=== PATIENT | male | born 1995 | race Caucasian/White ===

== ENCOUNTER 2016-06-23 19:22 | Emergency (ER) | payer OTHER ==
[2016-06-23 19:57] VITALS: BP 126/69
--- NOTE | 2016-06-23 20:18 | UC ---
Throat Pain/Nasal Bob HPI - HPI Summary HPI Summary: ST, L>R since yesterday. Roommate has strep currently, but has hx of repeated gonorrhea in the throat. Thinks it is one of these. Denies rash, vomiting, or cough. - History of Current Complaint Chief Complaint: UCRespiratory Stated Complaint: THROAT PAIN Time Seen by Provider: 06/23/16 20:10 Hx Obtained From: Patient Onset/Duration: Gradual Onset Cough: None Associated Signs & Symptoms: Negative: Fever, Vomiting, Rash - Allergies/Home Medications Allergies/Adverse Reactions: Allergies Allergy/AdvReac Type Severity Reaction Status Date / Time No Known Allergies Allergy Verified 05/24/14 14:00 Home Medications: Home Medications Aleve 1 tab PO DAILY PRN 06/23/16 [History Confirmed 06/23/16] PMH/Surg Hx/FS Hx/Imm Hx Endocrine History Of: Denies: Diabetes, Thyroid Disease Cardiovascular History Of: Denies: Cardiac Disorders, Hypertension Respiratory History Of: Denies: COPD, Asthma GI/ History Of: Denies: Ulcer - Surgical History Surgical History: None - Family History Known Family History: Positive: Hypertension - Social History Alcohol Use: Rare Substance Use Type: None Smoking Status (MU): Never Smoked Tobacco Have You Smoked in the Last Year: No Household Exposure Type: Cigarettes Review of Systems Constitutional: Negative Skin: Negative Eyes: Negative ENT: Sore Throat Respiratory: Negative Cardiovascular: Negative Gastrointestinal: Negative Genitourinary: Negative Motor: Negative Neurovascular: Negative Musculoskeletal: Negative Neurological: Negative Psychological: Negative All Other Systems Reviewed And Are Negative: Yes Physical Exam Triage Information Reviewed: Yes Appearance: Well-Appearing, No Pain Distress, Well-Nourished Vital Signs: Initial Vital Signs Temp 99.5 F 06/23/16 19:50 Pulse 84 06/23/16 19:50 Resp 18 06/23/16 19:50 BP 126/69 06/23/16 19:50 Pulse Ox 98 06/23/16 19:50 Vital Signs Reviewed: Yes Eye Exam: Normal Eyes: Positive: Conjunctiva Clear ENT: Positive: Hearing grossly normal, Pharyngeal erythema, TMs normal, Tonsillar swelling Dental Exam: Normal Neck: Positive: Tenderness @ - tonsillar nodes, Enlarged Nodes @ - tonsillar Respiratory Exam: Normal Respiratory: Positive: Chest non-tender, Lungs clear, Normal breath sounds, No respiratory distress, No accessory muscle use Cardiovascular Exam: Normal Cardiovascular: Positive: RRR, No Murmur Musculoskeletal Exam: Normal Neurological Exam: Normal Neurological: Positive: Alert Psychological Exam: Normal Skin Exam: Normal Throat Pain/Nasal Course/Dx - Differential Dx/Diagnosis Provider Diagnoses: pharyngitis, suspect gonorrhea Discharge - Discharge Plan Condition: Stable Disposition: HOME Patient Education Materials: Tonsillitis (ED) Referrals: [facility] [Outside] Additional Instructions: your rapid strep is negative; I am treating you and testing you for gonorrhea. If you do not have clear and rapid improvement, please follow up with Yuri.
[2016-06-23] MEDS ORDERED: Lidocaine 1% MPF* 2 ML VIAL INJ ONE (20:36)
[2016-06-23] MEDS ORDERED: cefTRIAXone VIAL(*) 250 MG VIAL IM ONE (20:36)
== END 2016-06-23 20:55 | disposition home or self-care (01) ==
LOC: UCEAST 19:22
DX: J02.9 Acute pharyngitis, unspecified (principal)
CPT/HCPCS: 87491; 87591; 87651; 96372; 99211; G0463; J0696